=== PATIENT | male | born 1990 | race African-American/Black ===

== ENCOUNTER 2020-07-26 01:57 | Emergency (ER) | payer SELFPAY ==
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
[2020-07-26] MEDS ORDERED: Diphtheria,Pertussis(Acell),Tetanus Vaccine 0.5 ML Syringe IM ONE ×2 (03:20→04:11)
[2020-07-26] MEDS ORDERED: Lidocaine 1% 10 ML MDV INJECT ONE (04:02)
--- NOTE | 2020-07-26 06:18 | CT ---
Head CT Technique: Multiple axial sections through the brain were obtained. Intravenous contrast was not utilized. Reconstructed coronal and sagittal images were obtained. Comparison: No prior intracranial imaging is available. Findings: Ventricles along with basal cisterns and sulci over the convexities appear within normal limits for the patient's age. No abnormal parenchymal densities are seen. No evidence of intracranial hemorrhage. No midline shift or mass-effect is seen. Bone window settings were reviewed. Visualized paranasal sinuses and mastoid sinuses show nothing acute. No acute calvarial abnormality is appreciated. Impression: 1. No acute intracranial abnormality is seen. Diagnostic code #1 I agree with preliminary report from [facility], finalized on 0 , 4:50 AM CDT, code 1
== END 2020-07-26 05:19 | disposition home or self-care (01) ==
LOC: JD.ED 01:57
DX: S01.01XA Laceration without foreign body of scalp, initial encounter (principal); Z23 Encounter for immunization; Y04.0XXA Assault by unarmed brawl or fight, initial encounter
CPT/HCPCS: 12001; 12002; 70450; 70450-26; 90471; 90715; 99284; 99284-25

== ENCOUNTER 2021-02-08 21:57 | Emergency (ER) | payer SELFPAY ==
--- NOTE | 2021-02-08 23:59 | EDM.PDOC ---
ED HPI GENERAL MEDICAL PROBLEM - General Chief Complaint: General Stated Complaint: BLOOD IN STOOLS Time Seen by Provider: 02/08/21 23:23 Source of Information: Reports: Patient History Limitations: Reports: No Limitations - History of Present Illness INITIAL COMMENTS - FREE TEXT/NARRATIVE: Mr. Granados is a very pleasant 30-year-old gentleman who now presents to the ED stating that he noticed some blood mixed with stool, along with blood on the toilet paper after he had a bowel movement yesterday, 02/07/2021. He states that he has had diarrhea since 02/06/2021. He reports having a slight abdominal discomfort last night. The patient has not taken any [id number] or home remedies since the onset of his symptoms. The patient reports having a similar symptoms in the past, perhaps 3 times over the past 1 to 2 years, although not as severe. No prior medical evaluation for these symptoms. He has never undergone an EGD or colonoscopy. Here in the ED tonight, the patient is found to be hemodynamically stable, afebrile, saturating 96% on room air. He appears to be comfortable, no acute distress. The patient states that he was started on amoxicillin about 2 weeks ago for an ear infection, finishing it about 1 week ago. Otherwise, prior to yesterday, the patient denies having a recent fever, chills, sore throat, nasal or sinus congestion, cough, dyspnea, chest pain, palpitations, nausea, vomiting, constipation, diarrhea, abdominal pain, urinary symptoms, recent weight gain or weight loss, recent bloody bowel movements or black bowel movements, recent joint aches, headaches, or rashes. The patient does not have a PCP. He has not received a COVID vaccination, nor an influenza vaccination this season. Abdomen Pain Score (Numeric/FACES): 4 - Related Data Allergies Allergy/AdvReac Type Severity Reaction Status Date / Time No Known Allergies Allergy Verified 09/30/18 13:54 Home Meds: Home Meds Amoxicillin 875 mg PO BID 02/08/21 [History] Past Medical History - Infectious Disease History Infectious Disease History: Reports: Novel Coronavirus - Past Surgical History GI Surgical History: Reports: Appendectomy Social & Family History - Tobacco Use Tobacco Use Status *Q: Never Tobacco User - Caffeine Use Caffeine Use: Reports: Soda, Tea - Alcohol Use Alcohol Use History: Yes Alcohol Use Frequency: Socially - Recreational Drug Use Recreational Drug Use: No - Living Situation & Occupation Living situation: Reports: Single, with Family Occupation: Unemployed ED ROS GENERAL - Review of Systems Review Of Systems: Comprehensive ROS is negative, except as noted in HPI. ED EXAM, GI/ABD - Physical Exam Exam: See Below Exam Limited By: No Limitations General Appearance: Alert, WD/WN, No Apparent Distress Eyes: Bilateral: Normal Appearance, EOMI Ears: Normal External Exam, Hearing Grossly Normal Nose: Normal Inspection Throat/Mouth: Normal Inspection, Normal Lips, Normal Voice, No Airway Compromise Head: Atraumatic, Normocephalic Neck: Normal Inspection, Full Range of Motion Respiratory/Chest: No Respiratory Distress, Lungs Clear, Normal Breath Sounds, No Accessory Muscle Use Cardiovascular: Normal Peripheral Pulses, Regular Rate, Rhythm, No Edema, No Gallop, No JVD, No Murmur, No Rub GI/Abdominal Exam: Normal Bowel Sounds, Soft, Non-Tender, No Organomegaly, No Distention, No Abnormal Bruit, No Mass Rectal (Males) Exam: Normal Rectal Tone, Heme + Stool (scant pinkish color), Hemorrhoids (2 external, non-thrombosed, nontender) Back Exam: Normal Inspection, Full Range of Motion, NT Extremities: Normal Inspection, Normal Range of Motion, No Pedal Edema, Normal Capillary Refill Neurological: Alert, Oriented, Normal Cognition, No Motor/Sensory Deficits Psychiatric: Normal Affect Skin Exam: Warm, Dry, Intact, Normal Color, No Rash Course - Vital Signs Last Recorded V/S: Last Vital Signs Temp 36.1 C 02/08/21 22:36 Pulse 70 02/08/21 22:36 Resp 20 02/08/21 22:36 BP 114/92 H 02/08/21 22:36 Pulse Ox 96 02/08/21 22:36 Orthostatic Blood Pressure [ 135/87 Standing] Orthostatic Blood Pressure [ 133/85 Supine] - Orders/Labs/Meds Labs: Laboratory Tests 02/08/21 02/08/21 02/09/21 Range/Units 23:10 23:10 02:25 WBC 6.72 (4.23-9.07) K/mm3 RBC 4.78 (4.63-6.08) M/mm3 Hgb 14.9 (13.7-17.5) gm/dl Hct 45.0 (40.1-51.0) % MCV 94.1 H (79.0-92.2) fl MCH 31.2 (25.7-32.2) pg MCHC 33.1 (32.2-35.5) g/dl RDW Std Deviation 42.2 (35.1-43.9) fL Plt Count 317 (163-337) K/mm3 MPV 8.9 L (9.4-12.3) fl Neut % (Auto) 58.3 (34.0-67.9) % Lymph % (Auto) 35.1 (21.8-53.1) % [place] % (Auto) 5.2 L (5.3-12.2) % Eos % (Auto) 0.7 L (0.8-7.0) Baso % (Auto) 0.3 (0.1-1.2) % Neut # (Auto) 3.91 (1.78-5.38) K/mm3 Lymph # (Auto) 2.36 (1.32-3.57) K/mm3 [place] # (Auto) 0.35 (0.30-0.82) K/mm3 Eos # (Auto) 0.05 (0.04-0.54) K/mm3 Baso # (Auto) 0.02 (0.01-0.08) K/mm3 Sodium 143 (136-145) mEq/L Potassium 4.3 (3.5-5.1) mEq/L Chloride 107 (98-107) mEq/L Carbon Dioxide 25 (21-32) mEq/L Anion Gap 15.3 H (5-15) BUN 19 H (7-18) mg/dL Creatinine 1.5 H (0.7-1.3) mg/dL Est Cr Clr Drug Dosing 79.76 mL/min Estimated GFR (MDRD) > 60 (>60) mL/min BUN/Creatinine Ratio 12.7 L (14-18) Glucose 110 H (70-99) mg/dL Calcium 9.1 (8.5-10.1) mg/dL Total Bilirubin 0.3 (0.2-1.0) mg/dL AST 16 (15-37) U/L ALT 31 (16-63) U/L Alkaline Phosphatase 59 (46-116) U/L Total Protein 7.7 (6.4-8.2) g/dl Albumin 3.9 (3.4-5.0) g/dl Globulin 3.8 gm/dL Albumin/Globulin Ratio 1.0 (1-2) C.difficile [id number] Presumptive negative C. difficile Tox (PCR) Negative - Re-Assessments/Exams Free Text/Narrative Re-Assessment/Exam: 02/08/21 23:55 Scant pinkish colored stool on the finger was grossly heme positive on rectal exam. Orthostatics, a CBC, and CMP were ordered at triage. The patient is not orthostatic. His CBC is unremarkable. His CMP is remarkable for a BUN/Cr mildly elevated at 19/1.5, with slight hyperglycemia of 110, and the remainder of his CMP being unremarkable. I have ordered a stool for C. difficile. 02/09/21 03:55 Stool C. difficile is negative. 02/09/21 03:58 Test results discussed with the patient. I explained that I am unable to determine the cause of his bleeding - it is most likely due to a hemorrhoid, but could be due to something more serious, such as a colon polyp. I will refer him to Dr. Barfield for further evaluation, that will likely include a colonoscopy. Departure - Departure Time of Disposition: 03:59 Disposition: Home, Self-Care 01 Condition: Good Clinical Impression: Lower GI bleed - Discharge Information *PRESCRIPTION DRUG MONITORING PROGRAM REVIEWED*: Not Applicable *COPY OF PRESCRIPTION DRUG MONITORING REPORT IN PATIENT SHIRA: Not Applicable Instructions: Lower Gastrointestinal Bleeding Referrals: PCP,None [Primary Care Provider] - Abebe Barfield MD [Physician] - Forms: ED Department Discharge Additional Instructions: You were seen in the emergency room after experiencing bloody diarrhea with some abdominal discomfort. Work-up in the ER included positional blood pressure checks, some blood test, and a stool for C. difficile. Your entire work-up was unremarkable. You are not intravascularly depleted. You are not anemic. Your stool returned negative for C. difficile. The exact source of your lower GI bleed cannot be determined from the ER - further work-up is necessary. Please follow-up with the Surgeon Dr. Abebe Barfield for further evaluation, that may include a colonoscopy. If any other problems, please do not hesitate to return to the ER.
== END 2021-02-09 04:09 | disposition home or self-care (01) ==
LOC: JD.ED 21:57
DX: K92.2 Gastrointestinal hemorrhage, unspecified (principal); Z86.16 Personal history of COVID-19
CPT/HCPCS: 36415; 80053; 85025; 87493; 99284